=== PATIENT | male | born 1995 | race Caucasian/White ===

== ENCOUNTER 2018-01-27 12:29 | Emergency (ER) | payer SELFPAY ==
[2018-01-27] MEDS ORDERED: Lorazepam 2 MG/ML VIAL ONE (12:58)
== END 2018-01-27 14:27 | disposition home or self-care (01) ==
LOC: MADERS 12:29
DX: F43.0 Acute stress reaction (principal); F17.220 Nicotine dependence, chewing tobacco, uncomplicated
CPT/HCPCS: 96372; J2060

== ENCOUNTER 2018-05-30 19:04 | Emergency (ER) | payer SELFPAY ==
[2018-05-30] MEDS ORDERED: Lorazepam 1 MG TAB ONE (19:21)
== END 2018-05-30 20:30 | disposition home or self-care (01) ==
LOC: MADERS 19:04
DX: F19.980 Other psychoactive substance use, unspecified with psychoactive substance-induced anxiety disorder (principal); J30.2 Other seasonal allergic rhinitis; F41.9 Anxiety disorder, unspecified; F17.220 Nicotine dependence, chewing tobacco, uncomplicated; Z79.899 Other long term (current) drug therapy
CPT/HCPCS: 99283